=== PATIENT | female | born 1995 | race Caucasian/White ===

== ENCOUNTER 2019-10-20 07:38 | Emergency (ER) | payer MEDICAID, SELFPAY ==
--- NOTE | 2019-10-20 07:43 | ED.GENADULT ---
HPI - General Adult General Chief complaint: Upper Respiratory Infection Stated complaint: THINK I HAVE TONSILLITIS Time Seen by Provider: 10/20/19 07:43 Source: patient Mode of arrival: ambulatory Limitations: no limitations History of Present Illness HPI narrative: Patient is a 24-year-old female who presents for evaluation of sore throat, swollen lymph nodes in her neck. Patient reports a four-day history of borderline fevers greater than 100 Fahrenheit, sore throat, congestion, and swollen lymph nodes on both sides of her neck. Patient reports that her tonsils feel very swollen. She has been able to swallow and chew without difficulty. No cough or shortness of breath. No recent sick contacts. Patient stays at home. Related Data Allergies Allergy/AdvReac Type Severity Reaction Status Date / Time No Known Allergies Allergy Unverified 07/27/15 14:50 Review of Systems Review of Systems: Narrative: CONSTITUTIONAL: Reports fever CARDIOVASCULAR: Denies chest pain HEENT: Reports sore throat, congestion RESPIRATORY: Denies cough or dyspnea. GASTROINTESTINAL: Denies abdominal pain SKIN: Denies rash MUSCULOSKELETAL: Denies back pain NEUROLOGIC: Denies headache [facility] Past Medical History Medical History (Updated 10/20/19 @ 07:55 by Demi Denis MD) No pertinent past medical history Surgical History Surgical History (Updated 10/20/19 @ 07:52 by Demi Denis MD) No pertinent past surgical history Social History Social History (Updated 10/20/19 @ 07:52 by Demi Denis MD) Smoking status: Never smoker Alcohol intake: current Alcohol use details: Social, rarely Substance use: never Living arrangements: with family Gender identity (if verbalized by the patient): Female Exam Narrative: Exam Narrative: GENERAL: Awake, alert, conversant HEAD: Normocephalic, atraumatic. EYES: PERRLA and EOMI. ENT: Nares clear, no rhinorrhea or epistaxis. Mucous membranes moist. Bilateral palatine tonsils are erythematous, edematous, no petechiae, no exudate. Uvula is midline. No trismus. NECK: No neck rigidity. Bilateral cervical lymphadenopathy, anterior palpated. Lymph nodes are rubbery, mobile, mildly tender. CHEST: No respiratory distress, breathing even and non labored HEART: Regular rate, sinus rhythm ABDOMEN:Non distended, non tender EXTREMITIES: Normal range of motion. No edema. SKIN: Warm, dry, no rash. NEURO:No focal deficits. Alert and oriented x3 Course Course Emergency Course: Patient presenting for evaluation of sore throat, swollen tonsils, palpated lymph nodes on exam. Strep swab is positive for streptococcal pharyngitis. Will treat with antibiotics. We will also do a one-time dose of Decadron at this facility to help with edema and pain. Patient otherwise hemodynamically stable, tolerating her secretions. No other covid type features in setting of strep positive swab. Patient will be discharged home on antibiotic. Medical Decision Making Differential Diagnosis Differential Diagnosis: Pharyngitis, Tonsillitis, URI, Streptococcus Medical Records Medical records reviewed: Yes I reviewed the patient's medical records. Discharge Plan Discharge Clinical Impression: Viral infection Acute tonsillitis Qualifiers: Pharyngitis/tonsillitis etiology: streptococcus Streptococcal tonsillitis recurrence: non-recurrent Qualified Code(s): J03.00 - Acute streptococcal tonsillitis, unspecified Patient Disposition: Home, Self-Care Condition: Stable Instructions: Antibiotic Form, Strep Throat (ED) Additional Instructions: Please contact your primary care physician for follow up from this visit. If you experience worsening pain, vomiting that does not stop, bleeding complications, chest pain, shortness of breath, inability to tolerate your medications please return for reassessment. Take any prescribed medications as directed and do not miss or skip any doses of antibiotics if you h
[2019-10-20 07:46] VITALS: BP 156/100; PULSE 108; RESP 17; TEMP 37.7; O2SAT 98
[2019-10-20] MEDS: ACETAMINOPHEN 500 MG TABLET 1000 MG PO (07:54)
== END 2019-10-20 08:17 | disposition home or self-care (01) ==
PROVIDERS: Emergency Provider Emergency Medicine
DX: J03.00 Acute streptococcal tonsillitis, unspecified (principal); B34.9 Viral infection, unspecified
CPT/HCPCS: 87880; 99283; A9270; J1100

== ENCOUNTER 2020-02-09 11:32 | Emergency (ER) | payer SELFPAY ==
--- NOTE | ~2020-02-09 | CT_ITS ---
EXAMINATION: CT abdomen pelvis w con EXAM DATE: 02/09/2020 13:52 INDICATION: Abdominal pain, symptoms 2 days. TECHNIQUE: Spiral CT of the abdomen and pelvis was performed following intravenous injection of 100 m L Omnipaque 350. Axial, coronal and sagittal images were reviewed. The dose-length product (DLP) fo r this examination was 1185.93 mGy-cm. The exposure was tailored according to patient size (auto mA exposure control), and iterative reconstruction (ASIR) was used as additional dose reduction techniqu e. There is no prior study for comparison. FINDINGS: The liver, spleen, adrenal glands and pancreas are unremarkable. Gallbladder is unremarkab le. No biliary obstruction. Portal and splenic veins are patent. Kidneys enhance symmetrically. T here is no hydronephrosis. The uterus and ovaries are unremarkable, no adnexal mass. The bladder i s unremarkable. There is no retroperitoneal or pelvic lymphadenopathy. The appendix is normal. The stomach and small bowel are unremarkable. There is expected amount of c olonic stool. No free intraperitoneal gas. The heart is normal in size. There are no pericardial or pleural effusions. The lung bases are unremarkable. There are no significant osseous abnormalit ies identified. IMPRESSION: 1. No acute intra-abdominal findings. Reviewed, dictated and finalized at location A. [facility]
--- NOTE | ~2020-02-09 | US_ITS ---
EXAMINATION: US pelvic complete w TV DATE: 02/09/2020 13:00 INDICATION: Pelvic pain. TECHNIQUE: Multiple transabdominal and transvaginal sonographic images of the pelvis were obtained. COMPARISON: None. FINDINGS: TRANSABDOMINAL ULTRASOUND: The uterus measures 10.0 x 5.0 x 7.1 cm. There is trace free fluid in the pelvis. TRANSVAGINAL ULTRASOUND: The endometrial complex measures 12 mm in thickness. The right ovary measures 3.5 x 4.5 x 2.3 cm. The left ovary measures 1.3 x 3.1 x 1.5 cm. There is normal vascular flow in the ovaries. IMPRESSION: 1. Normal pelvis. Reviewed, dictated and finalized at location A. GER SURGICAL IMPRESSION: 1. Normal pelvis.
[2020-02-09 11:35] VITALS: BP 138/92; PULSE 85; RESP 18; TEMP 36.2; O2SAT 100
[2020-02-09 12:09] LABS: Basophils Percent Auto 0.3 % (0.2-1.2); Eosinophils Absolute Auto 0.1 K/mm3 (0-0.3); Hematocrit 40.4 % (37.0-47.0); Hemoglobin 13.2 g/dL (12.0-15.0); Immature Granulocyte Absolute 0.03 K/mm3 (0.00-0.031); Immature Granulocyte Percent A 0.3 % (0-0.5); Lymphocytes Percent Auto 30.9 % (18.3-44.2); Mean Corpuscular HGB Conc 32.7 g/dl (32-36); Mean Corpuscular Hemoglobin 26.9 pg (26-34); Mean Corpuscular Volume 82.3 fl (80-100); Mean Platelet Volume 8.9 fl (7.4-10.4); Monocytes Absolute Auto 0.8 K/mm3 (0.1-0.6); Neutrophils Absolute Auto 5.6 K/mm3 (1.3-6.7); Neutrophils Percent Auto 59.5 % (45.5-73.1); Platelet Count Result 260 k/mm3 (150-375); Red Blood Count 4.91 M/mm3 (4.2-5.4); Red Cell Distribution Width 13.9 % (11.5-14.5); White Blood Count 9.4 K/mm3 (4.5-10.0)
[2020-02-09 12:14] LABS: Add Urine Microscopic? YES; Appearance Urine Cloudy (Clear); Bacteria Urine Trace /hpf; Bilirubin Urine Negative (Negative); Blood Urine Negative (Negative); Color Urine Yellow (Yellow); Glucose Urine UA Negative (Negative); Ketones Urine Negative (Negative); Leukocyte Esterase Ur 3+ LEU/UL (Negative); Mucus Urine Rare /lpf; Nitrate Urine Negative (Negative); Protein Urine 1+ mg/dL (Negative); Squamous Epithelial Cell Urine Many /hpf (Few); Urobilinogen Urine Negative mg/dL (<2.0); WBC Urine 31-50 /hpf
[2020-02-09 12:17] LABS: Alanine Aminotransferase 18 U/L (4-35); Albumin Level 4.2 g/dL (3.5-5.1); Alkaline Phosphatase 56 U/L (38-126); Anion Gap 6 mmol/L (8-16); Aspartate Amino Transferase 25 U/L (14-36); Bilirubin,Total 0.5 mg/dL (0.2-1.3); Blood Urea Nitrogen 10 mg/dL (7-17); Calcium 9.3 mg/dL (8.4-10.2); Carbon Dioxide 30 mmol/L (22-30); Chloride 101 mmol/L (98-107); Estimated CRCL calculation 129 ml/min; Estimated Glomerular Filt Rate > 60; Glucose 101 mg/dL (65-105); Lipase 23 U/L (23-300); Potassium 3.7 mmol/L (3.4-5.0); Sodium 137 mmol/L (137-145)
--- NOTE | 2020-02-09 12:35 | ED.GENADULT ---
HPI - General Adult General Chief complaint: Abdominal Pain Stated complaint: pain in my uterus Time Seen by Provider: 02/09/20 11:37 Source: patient and family Mode of arrival: ambulatory Limitations: no limitations History of Present Illness HPI narrative: Patient is a 24-year-old female who presents to emergency department for evaluation of pelvic pain midline has been present for 3 days worse with intercourse and sitting on the toilet patient denies radiation of pain similar occurrence in the past has not taken anything for her symptoms normal on arrival patient does not appear distressed or uncomfortable lying in the bed denies vaginal bleeding or urinary complaints Related Data Allergies Allergy/AdvReac Type Severity Reaction Status Date / Time No Known Allergies Allergy Verified 02/09/20 11:37 Review of Systems Review of Systems: All systems reviewed & are unremarkable except as noted in HPI and below PMFSH Past Medical History Medical History No pertinent past medical history Surgical History Surgical History No pertinent past surgical history Social History Social History Smoking status: Never smoker Alcohol intake: current Substance use: never Gender identity (if verbalized by the patient): Female Exam Narrative: Exam Narrative: GENERAL: Well-appearing, well-nourished, and in no acute distress. HEAD: Normocephalic, atraumatic. EYES: PERRLA and EOMI. ENT: Nares clear, no rhinorrhea or epistaxis. Mucous membranes moist. CHEST: Clear to auscultation. No respiratory distress. No wheezes rales or rhonchi HEART: Regular rate and rhythm. No murmur heard. ABDOMEN: Soft, pubic tenderness midline no deformity remainder of abdomen nontender, nondistended, normal active bowel sounds. EXTREMITIES: Normal range of motion. No edema. SKIN: Warm, dry, no rash. NEURO: No focal deficits. Alert and oriented x3. PSYCH: Normal mood and affect. Course Course Emergency Course: Patient in the room in no distress no high risk changes in the blood work or imaging will be treated for urinary tract infection felt appropriate for outpatient reevaluation given fluids and medications in the emergency department afebrile nontoxic-appearing felt appropriate for outpatient reevaluation Vital Signs Vital signs: Vital Signs Temperature 97.1 F L 02/09/20 11:35 Pulse Rate 85 02/09/20 11:35 Respiratory Rate 18 02/09/20 11:35 Blood Pressure 138/92 H 02/09/20 11:35 Pulse Oximetry 100 02/09/20 11:35 Temperature 97.1 F L 02/09/20 11:35 Pulse Rate 72 02/09/20 13:43 Respiratory Rate 16 02/09/20 13:43 Blood Pressure 128/88 02/09/20 13:43 Pulse Oximetry 99 02/09/20 13:43 Medical Decision Making MDM Narrative Medical decision making narrative: Patient with urinary tract infection is the likely etiology of her symptoms aware of findings will follow with primary care will return if symptoms worsen and is felt appropriate for outpatient reevaluation Vital Signs Vital Signs: Vital Signs Temperature 97.1 F L 02/09/20 11:35 Pulse Rate 85 02/09/20 11:35 Respiratory Rate 18 02/09/20 11:35 Blood Pressure 138/92 H 02/09/20 11:35 Pulse Oximetry 100 02/09/20 11:35 Temperature 97.1 F L 02/09/20 11:35 Pulse Rate 72 02/09/20 13:43 Respiratory Rate 16 02/09/20 13:43 Blood Pressure 128/88 02/09/20 13:43 Pulse Oximetry 99 02/09/20 13:43 Lab Data Result diagrams: 02/09/20 11:59 02/09/20 11:59 Labs: Lab Results 02/09/20 02/09/20 02/09/20 Range/Units 11:59 11:59 11:59 WBC 9.4 (4.5-10.0) K/mm3 RBC 4.91 (4.2-5.4) M/mm3 Hgb 13.2 (12.0-15.0) g/dL Hct 40.4 (37.0-47.0) % MCV 82.3 (80-100) fl MCH 26.9 (26-34) pg MCHC 32.7 (32-36) g/dl RDW
--- NOTE | 2020-02-09 12:37 | PC.NURSE ---
PT TO ULTRASOUND AT THIS TIME, WILL MEDICATE PER PROVIDER ORDER UPON RETURN.
[2020-02-09] MEDS: SODIUM CHLORIDE 0.9% IV 1,000 ML 999 ML IV CONT (13:02)
[2020-02-09 13:43] VITALS: BP 128/88; PULSE 72; RESP 16; O2SAT 99
== END 2020-02-09 14:35 | disposition home or self-care (01) ==
PROVIDERS: Emergency Provider Emergency Medicine
DX: N39.0 Urinary tract infection, site not specified (principal)
CPT/HCPCS: 36415; 74177; 76830; 76856; 80053; 81001; 81025; 83690; 85025; 87086; 87088; 96361; 96365; 99284; J0131; J7030; Q9967